=== PATIENT | female | born 1975 | race Caucasian/White ===

== ENCOUNTER → 2019-10-30 08:28 | Outpatient (CLI) | payer BC, SELFPAY ==
--- NOTE | ~2019-10-30 | US_ITS ---
US soft tissue LE RT 10/30/2019 09:00 Indication: Right knee pain for 5 days. Evaluate for Tee's cyst. Procedure: High-resolution Limited soft tissue ultrasound of the right knee Comparison: No prior studies for comparison. Findings: There is normal heterogeneous soft tissues without focal solid or cystic mass. No evidence for Tee's cyst. No abnormal masses or fluid collections. Impression: 1: Normal ultrasound of the right knee soft tissues. No evidence for Tee's cyst. Reviewed, dictated and finalized at location A. Impression: 1: Normal ultrasound of the right knee soft tissues. No evidence for Tee's cy st.
== END ==
PROVIDERS: PCP Registered Nurse; Visit Provider Registered Nurse
DX: M25.569 Pain in unspecified knee (principal)
CPT/HCPCS: 76882

== ENCOUNTER → 2020-01-03 11:25 | Outpatient (CLI) | payer BC, SELFPAY ==
--- NOTE | ~2020-01-03 | MM_ITS ---
EXAMINATION: MM screening [facility] HISTORY: Screening mammogram TECHNIQUE: Craniocaudal and mediolateral oblique 3-D tomosynthesis images were obtained and synthetic 2-D images were generated. CAD analysis was submitted and interpreted. COMPARISON: 01/01/2017, 12/23/2016 BREAST PARENCHYMAL COMPOSITION: The breasts are heterogeneously dense, which may obscure small masses . FINDINGS: There is no evidence of suspicious mass, calcification, or architectural distortion to sugg est malignancy in either breast. There has been no suspicious interval change. IMPRESSION: 1. No mammographic evidence of malignancy. 2. Recommend routine screening mammography in one year. BI-RADS Category 1: Negative Reviewed, dictated and finalized at location A. SCHOOL DIRECTOR
== END ==
PROVIDERS: Visit Provider Obstetrics & Gynecology
DX: Z12.31 Encounter for screening mammogram for malignant neoplasm of breast (principal)
CPT/HCPCS: 77063; 77067

== ENCOUNTER 2024-01-28 12:16 | Outpatient (CLI) | payer BC, SELFPAY ==
--- NOTE | ~2024-01-28 | MM_ITS ---
EXAMINATION: MM screening [facility] HISTORY: Screening TECHNIQUE: Craniocaudal and mediolateral oblique 3-D tomosynthesis images were obtained and synthetic 2-D images were generated. CAD analysis was submitted and interpreted. COMPARISON: Comparison to multiple prior studies sequentially, with oldest reviewed study dated 07/2016. BREAST PARENCHYMAL COMPOSITION: Dense: The breasts are heterogeneously dense, which may obscure small masses FINDINGS: There is no evidence of suspicious mass, calcification, or architectural distortion to sugg est malignancy in either breast. There has been no suspicious interval change. IMPRESSION: 1. No mammographic evidence of malignancy. 2. Recommend routine screening mammography in one year. BI-RADS Category 1: Negative Reviewed, dictated and finalized at location B. TY COUNSELOR
== END 2024-01-28 12:17 | disposition home or self-care (01) ==
LOC: MICIMG 12:18
PROVIDERS: PCP Obstetrics & Gynecology; Visit Provider Obstetrics & Gynecology
DX: Z12.31 Encounter for screening mammogram for malignant neoplasm of breast (principal)
CPT/HCPCS: 77063; 77067